=== PATIENT | female | born 1985 | race Caucasian/White ===

== ENCOUNTER 2024-01-15 01:12 | Emergency (ER) | payer BC ==
[~2024-01-15] VITALS: Ht 170.2 cm; Wt 72.0 kg
[2024-01-15 01:20] VITALS: BP 129/103
[2024-01-15 01:23] VITALS: BP 135/83
[2024-01-15 01:30] VITALS: BP 143/98
[2024-01-15] MEDS ORDERED: oxyCODONE 10MG/APAP 325 MG 1 COMBO TAB PO ONE (01:35)
[2024-01-15 01:45] VITALS: BP 138/93
[2024-01-15] MEDS ORDERED: PROZAC10 MG PO (01:46)
[2024-01-15 02:00] VITALS: BP 121/80
[2024-01-15] MEDS ORDERED: TORADOL PO (04:27)
[2024-01-15] MEDS ORDERED: GABAPENTIN300 M2 PO (04:30)
[2024-01-15 04:31] VITALS: BP 121/80
== END 2024-01-15 04:35 | disposition home or self-care (01) | DRG 605 ==
LOC: ED 01:12
DX: S40.012A Contusion of left shoulder, initial encounter (principal); W19.XXXA Unspecified fall, initial encounter

== ENCOUNTER 2024-01-26 00:35 | Emergency (ER) | payer BC ==
[~2024-01-26] VITALS: Ht 170.2 cm; Wt 72.0 kg
[~2024-01-26 00:35] MED LIST: GABAPENTIN300 M2 PO; PROZAC10 MG PO; TORADOL PO
[2024-01-26 00:47] VITALS: BP 137/90
[2024-01-26] MEDS ORDERED: KETOROLAC TROMETHAMINE 30 MG/ML SDV IM ONE (00:50)
[2024-01-26] MEDS ORDERED: ACETAMINOPHEN 500 MG TAB PO ONE (00:50)
[2024-01-26] MEDS ORDERED: traMADol HCL 50 MG/TAB PO ONE (00:50)
[2024-01-26] MEDS ORDERED: MIRTAZAPINE30 M2 PO (00:59)
[2024-01-26 01:01] VITALS: BP 139/95
[2024-01-26 01:15] VITALS: BP 132/84
[2024-01-26] MEDS ORDERED: VOLTAREN - GENE75 MG PO (03:03)
[2024-01-26] MEDS ORDERED: TRAMADOL HCL50 MG PO (03:04)
[2024-01-26] MEDS ORDERED: oxyCODONE HCL ER 10 MG/TAB PO ONE (03:05)
[2024-01-26 03:06] VITALS: BP 132/84
== END 2024-01-26 03:18 | disposition home or self-care (01) | DRG 561 ==
LOC: ED 00:35
DX: S22.42XD Multiple fractures of ribs, left side, subsequent encounter for fracture with routine healing (principal); X58.XXXD Exposure to other specified factors, subsequent encounter

== ENCOUNTER 2024-03-10 18:29 | Emergency (ER) | payer OTHER ==
[2024-03-10] VITALS (11 sets, daily range): BP systolic 81–117; BP diastolic 47–68
[~2024-03-10] VITALS: Ht 170.2 cm; Wt 72.5 kg
[~2024-03-10 18:29] MED LIST changes: +MIRTAZAPINE30 M2 PO; +TRAMADOL HCL50 MG PO; +VOLTAREN - GENE75 MG PO
[2024-03-10] MEDS ORDERED: ONDANSETRON 4 MG/TAB ODT SL ONE (19:00)
[2024-03-10] MEDS ORDERED: KETOROLAC TROMETHAMINE 30 MG/ML SDV IV ONE (19:15)
[2024-03-10] MEDS ORDERED: HYDROmorphone HCL 2 MG/AMP IV ONE ×2 (19:15→20:50)
[2024-03-10] MEDS ORDERED: PROCHLORPERAZINE EDISYLATE 10 MG/2 ML SDV IV ONE (19:15)
[2024-03-10 19:28] LABS: BASO% 0.4 % (0-3); HEMATOCRIT 36.2 % (37.0-47.0); HEMOGLOBIN 11.6 g/dl (12.0-16.0); IMMATURE GRANULOCYTES 0.1 % (0.0-5.0); LYMPH% 6.9 % (15-41); MEAN CORPUSCULAR HGB 26.9 pG CALC (26.0-32.0); MONO% 11.7 % (2-13); NEUT# 6.36 thou/uL (2.00-7.15); NEUT% 80.9 % (42-76); RED BLOOD COUNT 4.31 mill/uL (4.20-5.60); RED CELL DISTRI WIDTH 13.8 % (11.5-15.5)
[2024-03-10] MEDS ORDERED: PIPERACILLIN Sodium-Tazobactam 3.375 GM in SODIUM CHLORIDE 0.9% 100 ML IV ONE (19:30)
[2024-03-10] MEDS ORDERED: SODIUM CHLORIDE 0.9% 1,000 ML IV ONE (19:30)
[2024-03-10 19:43] LABS: ALBUMIN 3.5 g/dL (3.2-5.0); BILIRUBIN, TOTAL 1.7 mg/dL (0.02-1.3); CREATININE 0.6 mg/dL (0.5-1.0); POTASSIUM 4.1 mmol/l (3.5-5.1); TOTAL PROTEIN 6.3 g/dL (6.3-8.2)
[2024-03-10 22:42] LABS: URINE BILIRUBIN - DIPSTICK Negative (NEGATIVE); URINE BLOOD DIPSTICK Moderate (NEGATIVE); URINE GLUCOSE - DIPSTICK 500 mg/dL (NEGATIVE); URINE KETONE 15 mg/dL (NEGATIVE); URINE PH 5.5 (4.5-8.0); URINE PROTEIN - DIPSTICK 30 mg/dL (NEG-TRACE); URINE SPECIFIC GRAVITY 1.025; URINE UROBILINOGEN - DIPSTICK 0.2 E.U./dL (0.2)
[2024-03-10 22:47] LABS: URINE COLOR Yellow; URINE LEUK ESTERASE Small (NEGATIVE); URINE NITRITE - DIPSTICK Positive (Negative)
[2024-03-10 22:49] LABS: URINE BACTERIA FEW hpf; URINE SQUAMOUS EPITHELIAL CELL FEW EPI/hpf (0-FEW); URINE WBC 50-100 WBC/hpf (0-5)
[2024-03-11] VITALS: BP 100/49
[2024-03-11 00:15] VITALS: BP 92/51
[2024-03-11 00:22] VITALS: BP 111/60
[2024-03-11 00:30] VITALS: BP 90/57
[2024-03-11 00:45] VITALS: BP 102/62
[2024-03-11 01:31] VITALS: BP 102/62
== END 2024-03-11 01:33 | disposition short-term general hospital (02) | DRG 694 ==
LOC: ED 18:29
PROVIDERS: Emergency Medicine
DX: N13.2 Hydronephrosis with renal and ureteral calculous obstruction (principal); C25.4 Malignant neoplasm of endocrine pancreas; K86.1 Other chronic pancreatitis; E31.21 Multiple endocrine neoplasia [MEN] type I; Z90.411 Acquired partial absence of pancreas; Z20.822 Contact with and (suspected) exposure to COVID-19
CPT/HCPCS: Q9967

== ENCOUNTER 2024-03-19 16:59 | Emergency (ER) | payer OTHER ==
[~2024-03-19] VITALS: Ht 170.2 cm; Wt 72.5 kg
[2024-03-19] MEDS ORDERED: SODIUM CHLORIDE 0.9% 1,000 ML IV STA (18:18)
[2024-03-19] MEDS ORDERED: KETOROLAC TROMETHAMINE 30 MG/ML SDV IV ONE (18:20)
[2024-03-19] MEDS ORDERED: HYDROmorphone HCL 2 MG/AMP IV ONE (18:45)
[2024-03-19 19:33] LABS: URINE BILIRUBIN - DIPSTICK Negative (NEGATIVE); URINE BLOOD DIPSTICK Moderate (NEGATIVE); URINE GLUCOSE - DIPSTICK Negative (NEGATIVE); URINE KETONE Negative (NEGATIVE); URINE PROTEIN - DIPSTICK 100 mg/dL (NEG-TRACE); URINE SPECIFIC GRAVITY 1.025; URINE UROBILINOGEN - DIPSTICK 0.2 E.U./dL (0.2)
[2024-03-19 19:35] LABS: URINE COLOR Yellow; URINE LEUK ESTERASE Small (NEGATIVE); URINE NITRITE - DIPSTICK Positive (Negative)
[2024-03-19 19:47] LABS: URINE BACTERIA FEW hpf; URINE SQUAMOUS EPITHELIAL CELL FEW EPI/hpf (0-FEW); URINE WBC TNTC WBC/hpf (0-5)
[2024-03-19] MEDS ORDERED: cefTRIAXone SODIUM 2 GM in SODIUM CHLORIDE 0.9% 100 ML IV ONE (19:55)
[2024-03-19] MEDS ORDERED: GENTAMICIN SULFATE IV ONE (19:55)
[2024-03-19] MEDS ORDERED: DEXTROSE 5% IV ONE (19:55)
[2024-03-19 20:35] LABS: BASO% 0.4 % (0-3); EOS% 1.8 % (0-8); HEMATOCRIT 34.3 % (37.0-47.0); HEMOGLOBIN 10.9 g/dl (12.0-16.0); IMMATURE GRANULOCYTES 0.3 % (0.0-5.0); LYMPH% 12.4 % (15-41); MEAN CELL VOLUME 82.9 fL CALC (80.0-100.0); MEAN CORPUSCULAR HGB 26.3 pG CALC (26.0-32.0); MEAN CORPUSCULAR HGB CONC 31.8 g/dL CAL (32.0-36.0); MONO% 6.4 % (2-13); NEUT# 5.99 thou/uL (2.00-7.15); NEUT% 78.7 % (42-76); RED BLOOD COUNT 4.14 mill/uL (4.20-5.60); RED CELL DISTRI WIDTH 13.5 % (11.5-15.5)
[2024-03-19 20:39] LABS: ALBUMIN 3.9 g/dL (3.2-5.0); BILIRUBIN, TOTAL 0.7 mg/dL (0.02-1.3); CREATININE 0.7 mg/dL (0.5-1.0); POTASSIUM 4.1 mmol/l (3.5-5.1)
[2024-03-19] MEDS ORDERED: ONDANSETRON HCl 4 MG/2 ML SDV IV ONE (22:25)
[2024-03-19] MEDS ORDERED: MORPHINE SULFATE 4 MG/ML VIAL IV ONE (22:25)
[2024-03-20] MEDS ORDERED: LORazepam 2 MG/ML IV ONE (00:15)
[2024-03-20 01:20] VITALS: BP 132/89
== END 2024-03-20 01:05 | DRG 690 ==
LOC: ED 16:59
PROVIDERS: Family Medicine
DX: N13.6 Pyonephrosis (principal); Z96.0 Presence of urogenital implants

== ENCOUNTER 2024-08-11 19:30 | Emergency (ER) | payer SELFPAY ==
[~2024-08-11] VITALS: Ht 170.2 cm; Wt 63.5 kg
[2024-08-11] MEDS ORDERED: Pantoprazole Sodium 40 MG VIAL (Protonix) IV STA (21:39)
[2024-08-11] MEDS ORDERED: SODIUM CHLORIDE 0.9% 1,000 ML IV STA (21:39)
[2024-08-11] MEDS ORDERED: PROCHLORPERAZINE EDISYLATE 10 MG/2 ML SDV IV ONE (21:40)
[2024-08-11] MEDS ORDERED: KETOROLAC TROMETHAMINE 30 MG/ML SDV IV ONE (21:40)
[2024-08-11 22:18] VITALS: BP 112/82
[2024-08-11 22:18] LABS: BASO% 0.4 % (0-3); EOS% 2.5 % (0-8); HEMATOCRIT 38.6 % (37.0-47.0); HEMOGLOBIN 12.6 g/dl (12.0-16.0); IMMATURE GRANULOCYTES 0.1 % (0.0-5.0); LYMPH% 23.9 % (15-41); MEAN CORPUSCULAR HGB 25.5 pG CALC (26.0-32.0); MEAN CORPUSCULAR HGB CONC 32.6 g/dL CAL (32.0-36.0); MONO% 5.4 % (2-13); NEUT# 6.27 thou/uL (2.00-7.15); NEUT% 67.7 % (42-76); RED BLOOD COUNT 4.95 mill/uL (4.20-5.60)
[2024-08-11] MEDS ORDERED: MORPHINE SULFATE 4 MG/ML VIAL IV ONE (22:30)
[2024-08-11 22:33] LABS: ALBUMIN 3.5 g/dL (3.2-5.0); BILIRUBIN, TOTAL 0.7 mg/dL (0.02-1.3); CREATININE 0.6 mg/dL (0.5-1.0); POTASSIUM 3.5 mmol/l (3.5-5.1); TOTAL PROTEIN 6.2 g/dL (6.3-8.2)
[2024-08-11 23:00] VITALS: BP 115/63
[2024-08-12] VITALS: BP 106/68
[2024-08-12 01:00] VITALS: BP 108/72
[2024-08-12] MEDS ORDERED: PROCHLORPERAZINE EDISYLATE 10 MG/2 ML SDV IV ONE (02:25)
[2024-08-12] MEDS ORDERED: HYDROcodone 5 MG/Acetaminophen 325 MG/COMBO PO ONE (02:25)
[2024-08-12] MEDS ORDERED: TYLENOL # 31 TA1 PO (02:55)
[2024-08-12 03:15] VITALS: BP 108/72
== END 2024-08-12 03:15 | disposition home or self-care (01) | DRG 392 ==
LOC: ED 19:30
PROVIDERS: Family Medicine
DX: R10.10 Upper abdominal pain, unspecified (principal); Z85.07 Personal history of malignant neoplasm of pancreas; Z90.411 Acquired partial absence of pancreas; Z20.822 Contact with and (suspected) exposure to COVID-19
CPT/HCPCS: J0780; J2470; Q9967

== ENCOUNTER 2024-09-04 11:02 | Observation (INO) | payer SELFPAY ==
[2024-09-04] VITALS (24 sets, daily range): BP systolic 124–149; BP diastolic 83–100
[~2024-09-04] VITALS: Ht 170.2 cm; Wt 61.0 kg
[~2024-09-04 11:02] MED LIST changes: +TYLENOL # 31 TA1 PO
[2024-09-04] MEDS ORDERED: MORPHINE SULFATE 4 MG/ML VIAL IV ONE (11:50)
[2024-09-04] MEDS ORDERED: KETOROLAC TROMETHAMINE 30 MG/ML SDV IV ONE (11:50)
[2024-09-04] MEDS ORDERED: ONDANSETRON HCl 4 MG/2 ML SDV IV ONE (11:50)
[2024-09-04] MEDS ORDERED: SODIUM CHLORIDE 0.9% 1,000 ML IV ONE (11:50)
[2024-09-04 11:59] LABS: URINE BILIRUBIN - DIPSTICK Negative (NEGATIVE); URINE BLOOD DIPSTICK Negative (NEGATIVE); URINE GLUCOSE - DIPSTICK Negative (NEGATIVE); URINE KETONE 15 mg/dL (NEGATIVE); URINE PROTEIN - DIPSTICK 30 mg/dL (NEG-TRACE); URINE SPECIFIC GRAVITY >=1.030
[2024-09-04 12:06] LABS: URINE COLOR Dark yellow; URINE LEUK ESTERASE Small (NEGATIVE); URINE NITRITE - DIPSTICK Positive (Negative)
[2024-09-04 12:11] LABS: URINE BACTERIA MANY hpf; URINE RBC 0-2 RBC/hpf (0-5); URINE SQUAMOUS EPITHELIAL CELL FEW EPI/hpf (0-FEW); URINE WBC 20-50 WBC/hpf (0-5)
[2024-09-04 13:31] LABS: BASO% 0.7 % (0-3); EOS% 0.7 % (0-8); HEMATOCRIT 42.2 % (37.0-47.0); MEAN CORPUSCULAR HGB 25.9 pG CALC (26.0-32.0); MEAN CORPUSCULAR HGB CONC 30.8 g/dL CAL (32.0-36.0); NEUT# 4.13 thou/uL (2.00-7.15); NEUT% 72.6 % (42-76); RED BLOOD COUNT 5.01 mill/uL (4.20-5.60); RED CELL DISTRI WIDTH 17.5 % (11.5-15.5)
[2024-09-04 13:33] LABS: MEAN CELL VOLUME 84.2 fL CALC (80.0-100.0)
[2024-09-04] MEDS ORDERED: cefTRIAXone SODIUM 2 GM in SODIUM CHLORIDE 0.9% 100 ML IV ONE (13:55)
[2024-09-04 13:56] LABS: ALBUMIN 3.3 g/dL (3.2-5.0); CREATININE 0.5 mg/dL (0.5-1.0); POTASSIUM 3.8 mmol/l (3.5-5.1); TOTAL PROTEIN 5.9 g/dL (6.3-8.2)
[2024-09-04] MEDS ORDERED: ONDANSETRON HCl 4 MG/2 ML SDV IV STA ×2 (14:03→15:33)
[2024-09-04] MEDS ORDERED: MORPHINE SULFATE 4 MG/ML VIAL IV STA (14:14)
[2024-09-04] MEDS ORDERED: ACETAMINOPHEN 325 MG/TAB PO PRN (16:00)
[2024-09-04] MEDS ORDERED: SODIUM CHLORIDE 0.9% 1,000 ML IV PRN (16:00)
[2024-09-04] MEDS ORDERED: MAGNESIUM HYDROXIDE 30 ML UDC PO PRN (16:00)
[2024-09-04] MEDS ORDERED: MORPHINE SULFATE 4 MG/ML VIAL IV PRN (16:00)
[2024-09-04] MEDS ORDERED: ONDANSETRON HCl 4 MG/2 ML SDV IV PRN (16:00)
[2024-09-04] MEDS ORDERED: ENOXAPARIN SODIUM 40 MG/0.4 ML SYR SC SCH (21:00)
[2024-09-04] MEDS ORDERED: PROCHLORPERAZINE EDISYLATE 10 MG/2 ML SDV IV PRN (23:10)
[2024-09-05 05:00] VITALS: BP 149/90
[2024-09-05 05:15] VITALS: BP 149/90
[2024-09-05 05:47] LABS: BASO% 0.6 % (0-3); EOS% 3.9 % (0-8); HEMATOCRIT 38.1 % (37.0-47.0); HEMOGLOBIN 12.2 g/dl (12.0-16.0); IMMATURE GRANULOCYTES 0.2 % (0.0-5.0); LYMPH% 25.5 % (15-41); MEAN CELL VOLUME 81.9 fL CALC (80.0-100.0); MEAN CORPUSCULAR HGB 26.2 pG CALC (26.0-32.0); MONO% 7.8 % (2-13); NEUT# 3.01 thou/uL (2.00-7.15); RED BLOOD COUNT 4.65 mill/uL (4.20-5.60); RED CELL DISTRI WIDTH 17.1 % (11.5-15.5)
[2024-09-05 06:10] LABS: ALBUMIN 3.1 g/dL (3.2-5.0); BILIRUBIN, TOTAL 2.1 mg/dL (0.02-1.3); CHOLESTEROL HDL RATIO 1.7 (<4.4 (CALC)); CREATININE 0.5 mg/dL (0.5-1.0); MAGNESIUM 1.7 mg/dL (1.6-2.3); TOTAL PROTEIN 5.8 g/dL (6.3-8.2)
[2024-09-05 06:57] VITALS: BP 143/96
[2024-09-05] MEDS ORDERED: PROMETHAZINE HCL 25 MG/TAB PO PRN (10:10)
[2024-09-05] MEDS ORDERED: oxyCODONE HCL 5 MG/TAB PO PRN (10:10)
[2024-09-05] MEDS ORDERED: ACAMPROSATE CA333 MG PO (11:35)
[2024-09-05] MEDS ORDERED: HYDROXYZINE HCL50 MG PO (11:38)
[2024-09-05 14:30] VITALS: BP 127/86
[2024-09-05 19:31] VITALS: BP 120/79
[2024-09-06 03:50] VITALS: BP 144/97
[2024-09-06 05:31] LABS: BASO% 0.8 % (0-3); HEMOGLOBIN 10.4 g/dl (12.0-16.0); LYMPH% 46.4 % (15-41); MEAN CELL VOLUME 82.7 fL CALC (80.0-100.0); MEAN CORPUSCULAR HGB 26.8 pG CALC (26.0-32.0); MEAN CORPUSCULAR HGB CONC 32.4 g/dL CAL (32.0-36.0); NEUT# 1.39 thou/uL (2.00-7.15); NEUT% 35.8 % (42-76); RED BLOOD COUNT 3.88 mill/uL (4.20-5.60); RED CELL DISTRI WIDTH 17.1 % (11.5-15.5)
[2024-09-06 05:34] LABS: ALBUMIN 2.6 g/dL (3.2-5.0); CREATININE 0.5 mg/dL (0.5-1.0); MAGNESIUM 1.7 mg/dL (1.6-2.3); POTASSIUM 3.6 mmol/l (3.5-5.1); TOTAL PROTEIN 4.9 g/dL (6.3-8.2)
[2024-09-06 05:37] LABS: HEMATOCRIT 32.1 % (37.0-47.0)
[2024-09-06 05:46] LABS: BILIRUBIN, TOTAL 1.2 mg/dL (0.02-1.3)
[2024-09-06 07:25] VITALS: BP 125/85
[2024-09-06 16:00] VITALS: BP 117/74
[2024-09-06 19:13] VITALS: BP 119/79
[2024-09-07 04:18] VITALS: BP 127/81
[2024-09-07 05:53] LABS: ALBUMIN 2.8 g/dL (3.2-5.0); BILIRUBIN, TOTAL 0.8 mg/dL (0.02-1.3); CREATININE 0.5 mg/dL (0.5-1.0); MAGNESIUM 1.7 mg/dL (1.6-2.3); POTASSIUM 3.8 mmol/l (3.5-5.1); TOTAL PROTEIN 5.2 g/dL (6.3-8.2)
[2024-09-07 05:56] LABS: BASO% 0.5 % (0-3); EOS% 4.3 % (0-8); HEMATOCRIT 31.9 % (37.0-47.0); HEMOGLOBIN 10.3 g/dl (12.0-16.0); IMMATURE GRANULOCYTES 0.3 % (0.0-5.0); LYMPH% 18.4 % (15-41); MEAN CELL VOLUME 83.5 fL CALC (80.0-100.0); MEAN CORPUSCULAR HGB CONC 32.3 g/dL CAL (32.0-36.0); MONO% 3.5 % (2-13); NEUT# 2.9 thou/uL (2.00-7.15); RED BLOOD COUNT 3.82 mill/uL (4.20-5.60); RED CELL DISTRI WIDTH 16.2 % (11.5-15.5)
[2024-09-07 07:25] VITALS: BP 140/80
[2024-09-07 12:24] LABS: AMYLASE 53 u/l (30-110); LIPASE 55 u/l (23-300)
[2024-09-07] MEDS ORDERED: PIPERACILLIN Sodium-Tazobactam 3.375 GM in SODIUM CHLORIDE 0.9% 100 ML IV SCH (12:30)
[2024-09-07 15:48] VITALS: BP 125/85
[2024-09-07 18:45] VITALS: BP 140/85
[2024-09-07 18:53] VITALS: BP 140/85
[2024-09-08 04:55] VITALS: BP 136/84
[2024-09-08 05:38] LABS: BASO% 1.1 % (0-3); EOS% 6.8 % (0-8); HEMATOCRIT 28.8 % (37.0-47.0); HEMOGLOBIN 9.4 g/dl (12.0-16.0); LYMPH% 32.3 % (15-41); MEAN CELL VOLUME 82.5 fL CALC (80.0-100.0); MEAN CORPUSCULAR HGB 26.9 pG CALC (26.0-32.0); MEAN CORPUSCULAR HGB CONC 32.6 g/dL CAL (32.0-36.0); MONO% 10.4 % (2-13); NEUT# 1.38 thou/uL (2.00-7.15); NEUT% 49.4 % (42-76); RED BLOOD COUNT 3.49 mill/uL (4.20-5.60); RED CELL DISTRI WIDTH 16.4 % (11.5-15.5)
[2024-09-08 05:43] LABS: ALBUMIN 2.5 g/dL (3.2-5.0); BILIRUBIN, TOTAL 0.6 mg/dL (0.02-1.3); CREATININE 0.5 mg/dL (0.5-1.0); MAGNESIUM 1.9 mg/dL (1.6-2.3); POTASSIUM 3.6 mmol/l (3.5-5.1); TOTAL PROTEIN 4.9 g/dL (6.3-8.2)
[2024-09-08 07:15] VITALS: BP 109/71
[2024-09-08] MEDS ORDERED: MORPHINE SULFATE 4 MG/ML VIAL IV PRN (09:27)
[2024-09-08 16:00] VITALS: BP 120/77
[2024-09-08 18:44] VITALS: BP 113/77
[2024-09-09 03:42] VITALS: BP 114/75
[2024-09-09 05:23] LABS: BASO% 1.1 % (0-3); EOS% 8.7 % (0-8); HEMATOCRIT 30.1 % (37.0-47.0); HEMOGLOBIN 9.6 g/dl (12.0-16.0); IMMATURE GRANULOCYTES 0.3 % (0.0-5.0); MEAN CELL VOLUME 83.6 fL CALC (80.0-100.0); MEAN CORPUSCULAR HGB 26.7 pG CALC (26.0-32.0); MEAN CORPUSCULAR HGB CONC 31.9 g/dL CAL (32.0-36.0); MONO% 9.5 % (2-13); NEUT# 2.19 thou/uL (2.00-7.15); NEUT% 61.4 % (42-76); RED BLOOD COUNT 3.6 mill/uL (4.20-5.60); RED CELL DISTRI WIDTH 16.8 % (11.5-15.5)
[2024-09-09 05:40] LABS: ALBUMIN 2.6 g/dL (3.2-5.0); BILIRUBIN, TOTAL 0.5 mg/dL (0.02-1.3); CREATININE 0.6 mg/dL (0.5-1.0); MAGNESIUM 1.8 mg/dL (1.6-2.3); TOTAL PROTEIN 5.1 g/dL (6.3-8.2)
[2024-09-09 06:52] VITALS: BP 120/88
[2024-09-09] MEDS ORDERED: PROCHLORPERAZINE5 M1 PO (09:00)
[2024-09-09] MEDS ORDERED: HYDROCO/APAP1 TA9 PO (09:00)
== END 2024-09-09 11:17 | disposition home or self-care (01) | DRG 439 ==
LOC: ED 11:02 → ED-I 15:30 → ED 15:40 → MS2 15:41
PROVIDERS: Emergency Medicine; Internal Medicine; Nurse Practitioner Family; ADMIT Internal Medicine; ATTEND Internal Medicine
PROC: 02HV33Z Insertion of Infusion Device into Superior Vena Cava, Percutaneous Approach (ICD-10-PCS; principal; 2024-09-05)
PROC: B518ZZA Fluoroscopy of Superior Vena Cava, Guidance (ICD-10-PCS; 2024-09-05)
DX: K85.90 Acute pancreatitis without necrosis or infection, unspecified (principal); N39.0 Urinary tract infection, site not specified; B96.20 Unspecified Escherichia coli [E. coli] as the cause of diseases classified elsewhere; K86.1 Other chronic pancreatitis; Z90.411 Acquired partial absence of pancreas; Z85.858 Personal history of malignant neoplasm of other endocrine glands
CPT/HCPCS: G0378; J0696; J0780; J1650; J2405; J2543

== ENCOUNTER 2024-10-14 16:45 | Emergency (ER) | payer MEDICARE, MEDICAID ==
[2024-10-14] VITALS (9 sets, daily range): BP systolic 112–144; BP diastolic 74–97
[~2024-10-14] VITALS: Ht 170.2 cm; Wt 61.0 kg
[~2024-10-14 16:45] MED LIST changes: +ACAMPROSATE CA333 MG PO; +HYDROCO/APAP1 TA9 PO; +HYDROXYZINE HCL50 MG PO; +PROCHLORPERAZINE5 M1 PO
[2024-10-14] MEDS ORDERED: MORPHINE SULFATE 4 MG/ML VIAL IV STA (17:29)
[2024-10-14] MEDS ORDERED: Pantoprazole Sodium 40 MG VIAL (Protonix) IV STA (17:29)
[2024-10-14] MEDS ORDERED: SODIUM CHLORIDE 0.9% 1,000 ML IV STA (17:29)
[2024-10-14] MEDS ORDERED: PROCHLORPERAZINE EDISYLATE 10 MG/2 ML SDV IV ONE (17:35)
[2024-10-14 17:59] LABS: BASO% 0.8 % (0-3); EOS% 1.3 % (0-8); LYMPH% 34.5 % (15-41); MEAN CORPUSCULAR HGB 25.1 pG CALC (26.0-32.0); MEAN CORPUSCULAR HGB CONC 33.2 g/dL CAL (32.0-36.0); MONO% 6.7 % (2-13); NEUT# 4.82 thou/uL (2.00-7.15); NEUT% 56.7 % (42-76); RED BLOOD COUNT 5.62 mill/uL (4.20-5.60); RED CELL DISTRI WIDTH 15.1 % (11.5-15.5)
[2024-10-14 18:00] LABS: HEMATOCRIT 42.5 % (37.0-47.0); HEMOGLOBIN 14.1 g/dl (12.0-16.0); MEAN CELL VOLUME 75.6 fL CALC (80.0-100.0)
[2024-10-14 18:09] LABS: ALBUMIN 3.8 g/dL (3.2-5.0); BILIRUBIN, TOTAL 1.3 mg/dL (0.02-1.3); CREATININE 0.6 mg/dL (0.5-1.0); POTASSIUM 4.1 mmol/l (3.5-5.1); TOTAL PROTEIN 6.6 g/dL (6.3-8.2)
[2024-10-14] MEDS ORDERED: METOCLOPRAMIDE HCL 10 MG/2 ML SDV IV ONE (19:20)
[2024-10-14] MEDS ORDERED: FAMOTIDINE 10MG/ML 2ML SDV IV ONE (19:20)
[2024-10-14 19:27] LABS: URINE BILIRUBIN - DIPSTICK Negative (NEGATIVE); URINE BLOOD DIPSTICK Trace-lysed (NEGATIVE); URINE GLUCOSE - DIPSTICK Negative (NEGATIVE); URINE KETONE Negative (NEGATIVE); URINE NITRITE - DIPSTICK Negative (Negative); URINE PROTEIN - DIPSTICK Negative (NEG-TRACE)
[2024-10-14 19:30] LABS: URINE COLOR Yellow; URINE LEUK ESTERASE Moderate (NEGATIVE)
[2024-10-14 19:34] LABS: URINE BACTERIA MANY hpf; URINE SQUAMOUS EPITHELIAL CELL MODERATE EPI/hpf (0-FEW); URINE WBC >100 WBC/hpf (0-5)
[2024-10-14] MEDS ORDERED: PROCHLORPERAZINE5 M1 PO (20:01)
[2024-10-14] MEDS ORDERED: PROTONIX40 M2 PO (20:01)
[2024-10-14] MEDS ORDERED: DICYCLOMINE HYD10 MG PO (20:01)
[2024-10-14] MEDS ORDERED: KEFLEX500 MG PO (20:09)
== END 2024-10-14 20:43 | disposition home or self-care (01) ==
LOC: ED 16:45
PROVIDERS: Nurse Practitioner
DX: K29.20 Alcoholic gastritis without bleeding (principal); F10.10 Alcohol abuse, uncomplicated; Y90.8 Blood alcohol level of 240 mg/100 ml or more; N39.0 Urinary tract infection, site not specified; B96.20 Unspecified Escherichia coli [E. coli] as the cause of diseases classified elsewhere; F32.A Depression, unspecified; Z85.07 Personal history of malignant neoplasm of pancreas
CPT/HCPCS: J0780; J2470; J2765; Q9967